=== PATIENT | male | born 1955 | race Caucasian/White ===

== ENCOUNTER 2016-12-24 09:15 | Emergency (ER) | payer OTHER ==
[~2016-12-24] VITALS: Ht 177.8 cm; Wt 82.6 kg
[~2016-12-24 09:15] MED LIST: NAPROXEN500 MG PO; TRAMADOL HCL50 MG PO
[2016-12-24] MEDS ORDERED: FLEXERIL10 MG PO (11:29)
[2016-12-24 12:24] VITALS: BP 124/81
== END 2016-12-24 12:32 | disposition home or self-care (01) ==
LOC: EME 09:15
DX: M54.30 Sciatica, unspecified side (principal); G89.29 Other chronic pain; F17.200 Nicotine dependence, unspecified, uncomplicated
CPT/HCPCS: 72100; 99281; 99284; J1100; J1885